=== PATIENT | female | born 1995 | race Caucasian/White ===

== ENCOUNTER → 2017-12-29 21:29 | Outpatient (CLI) | payer SELFPAY ==
[2017-12-29 23:15] LABS: Chlamydia Trachomatis by PCR Negative (Negative); Neisserai gonorrhoeae by PCR Negative (Negative); Probe Check PASS; Sample Adequacy Control PASS; Specimen Processing Control PASS
== END ==
PROVIDERS: Visit Provider Obstetrics & Gynecology
DX: Z12.4 Encounter for screening for malignant neoplasm of cervix (principal); Z11.3 Encounter for screening for infections with a predominantly sexual mode of transmission
CPT/HCPCS: 87491; 87591; 88175; G0145

== ENCOUNTER 2018-06-27 13:15 | Outpatient (CLI) | payer OTHER, SELFPAY ==
[2018-06-27 13:27] VITALS: BMI 29.4
--- NOTE | 2018-06-27 23:55 | OB.TRI.NOTE ---
- Problem List (1) 34 weeks gestation of Status: Acute (2) Decreased movement Status: Acute Qualifiers: Fetus number: single or unspecified fetus Trimester: third trimester Qualified Code(s): O36.8130 - Decreased movements, third trimester, not applicable or unspecified History of Present Illness Date of Service: 06/27/18 Was patient seen by the physician?: No Reason For Visit: NST Final HOLDEN: 08/07/18 Gestational age: 34 Weeks and 1 Days History of Present Illness: 22yo @ 34 1/7wga with c/o decreased movement Allergies acetaminophen [From Darvocet-N] Adverse Reaction (Verified 06/27/18 13:29) Other propoxyphene [From Darvocet-N] Adverse Reaction (Verified 06/27/18 13:29) Other felt fainting and dizzy Physical Exam Vitals: VSS NST - FHR Rate Baby A Baseline: 125 Variability:: Moderate Accelerations:: 15 x 15 Decelerations:: None NST Reactive:: Yes FHR Category:: Category I Uterine Activity:: irritability Impression/Plan 22yo @ 34 1/7wga with reactive NST, Cat I FHR -d/c home
== END 2018-06-27 14:25 | disposition home or self-care (01) ==
LOC: WPOUT 13:22 → WP 13:23
PROVIDERS: Family Provider Family Medicine; PCP Family Medicine; Referring Provider Obstetrics & Gynecology; Visit Provider Obstetrics & Gynecology
DX: O36.8130 Decreased fetal movements, third trimester, not applicable or unspecified (principal); Z3A.34 34 weeks gestation of pregnancy
CPT/HCPCS: 59025; 59050; 99218; G0378

== ENCOUNTER → 2018-07-12 11:15 | Outpatient (CLI) | payer OTHER, SELFPAY ==
[2018-06-27 13:27] VITALS: BMI 29.4
== END ==
PROVIDERS: Family Provider Family Medicine; PCP Family Medicine; Referring Provider Obstetrics & Gynecology; Visit Provider Obstetrics & Gynecology
DX: Z36.85 Encounter for antenatal screening for Streptococcus B (principal)
CPT/HCPCS: 87081

== ENCOUNTER → 2018-08-05 18:20 | Outpatient (CLI) | payer OTHER, SELFPAY ==
[2018-08-05 19:21] LABS: ROM Internal Control Test YES-OK TO RESULT pt. (Internal QC); ROM Patient Test Negative (Negative)
[2018-08-05 19:22] LABS: Record Kit Lot#, ROM+ J7836
[2018-08-05 19:54] VITALS: BMI 31.5
--- NOTE | 2018-08-08 04:15 | OB.TRI.NOTE ---
History of Present Illness Date of Service: 08/05/18 Was patient seen by the physician?: No Reason For Visit: R/O LABOR Date of Service: 08/05/18 Final HOLDEN: 08/07/18 Final HOLDEN Source: US >20 weeks Gestational age: 39 Weeks and 5 Days History of Present Illness: 39+ week intrauterine presents with some leaking starting the day before she presented. Concern that her water may be broke. Contractions mild. Allergies acetaminophen [From Darvocet-N] Adverse Reaction (Verified 08/05/18 19:56) Other propoxyphene [From Darvocet-N] Adverse Reaction (Verified 08/05/18 19:56) Other felt fainting and dizzy Laboratory Studies: Laboratory Tests 08/05/18 Range/Units 18:48 Vag Amniotic Fld Detect Negative (Negative) NST - FHR Rate Baby A NST Reactive:: Yes FHR Category:: Category I Impression/Plan 39+ week intrauterine with false labor. ROM plus test negative. Cervix unchanged after observation and mild contractions noted. Reactive nonstress test. Will release to home with instructions to return with increased contractions or rupture of membranes otherwise follow-up in office as scheduled.
== END | disposition home or self-care (01) ==
LOC: WPOUT 18:47 → WP 18:48
PROVIDERS: Family Provider Family Medicine; PCP Family Medicine; Visit Provider Obstetrics & Gynecology
DX: O47.1 False labor at or after 37 completed weeks of gestation (principal); Z3A.39 39 weeks gestation of pregnancy
CPT/HCPCS: 59025; 59050; 84112; 99218; G0378

== ENCOUNTER 2018-08-09 | Inpatient (IN) | payer SELFPAY ==
[2018-08-05 19:54] VITALS: BMI 31.5
[2018-08-09 00:18] VITALS: BMI 31.3
[2018-08-09] MEDS: Lactated Ringers 1,000 ML 50 ML IV ×2 (00:20→02:00)
[2018-08-09 00:52] LABS: Hematocrit 37.9 % (37-47); Hemoglobin 12.5 g/dl (12.0-15.0); Mean Corpuscular Hgb 28.5 pg (27.0-32.0); Mean Corpuscular Volume 86.3 fL (81-99); Mean Platelet Vol. 10.9 fl (6.2-12.0); Platelet Count 113 K/mm3 (150-450); RBC Distribution Width CV 16.9 % (11.6-14.6); RBC Distribution Width SD 53.4 fl (35.1-43.9); Red Blood Count 4.39 M/mm3 (4.2-5.4); White Blood Count 7.6 K/mm3 (4.4-11.0)
[2018-08-09 00:58] LABS: Scan Indicated on CBC? Y/N NO
[2018-08-09 01:05] LABS: Partial Thromboplast Time 27.6 Seconds (24.1-36.2)
[2018-08-09 01:06] LABS: AST(SGOT) 25 U/L (15-37); Alanine Aminotransfer ALT/SGPT 18 U/L (13-56); EST Glomerular Filtration Rate 162 mL/min (>60); Est Glom Filt Rate - Afr Amer 196 mL/min (>60); Estimated Creatinine Clearance 149.82 ml/min; Uric Acid 4.5 mg/dL (2.6-6.0)
[2018-08-09] MEDS: fentaNYL-bupivacaine (epidural) 100 ML BAG EPIDURAL (01:47)
--- NOTE | 2018-08-09 02:10 | PCM.HP.OB ---
- Problem List (1) 40 weeks gestation of Status: Acute (2) (spontaneous vaginal delivery) Status: Acute History Date of Admission: 08/09/18 Final HOLDEN: 08/07/18 Final HOLDEN Source: US <20 weeks Gestational age: 40 Weeks and 2 Days History of this : This is a 22 year-old, G [2], P [1001], at 40 weeks gestational age admitted with contractions and leaking of fluid. Medical History: Medical History (Last Updated 08/09/18 @ 03:55 by Sugey Camp MD) Anemia affecting O99.019 History of blood transfusion Z92.89 Allergies acetaminophen [From Darvocet-N] Adverse Reaction (Verified 08/09/18 00:19) Other propoxyphene [From Darvocet-N] Adverse Reaction (Verified 08/09/18 00:19) Other felt fainting and dizzy Home Medications: Home Medications Calcium Carbonate [Calcium] 600 mg PO DAILY 06/27/18 Ferrous Sulfate 325 mg PO BIDCM 06/27/18 Vits [Prenatabs FA] 1 tablet PO DAILY 06/27/18 Smoking Status: Never smoker Alcohol: None Number of Fetus(es): 1 Heart Tracin, moderate variability, + accelerations, + variable decelerations TOCO Analysis: 2-3/10 min History Past Pregnancies: Past Pregnancies May 2017 - 41 weeks - 8h labor - FEMALE - 8lb- Epidural at [facility] - hemorrhage with 2U PRBC Labs: Labs 08/09/18 08/09/18 08/09/18 00:20 00:20 00:20 WBC 7.6 RBC 4.39 Hgb 12.5 Hct 37.9 MCV 86.3 MCH 28.5 MCHC 33.0 RDW 16.9 H RDW Differential 53.4 H Plt Count 113 L MPV 10.9 PT 13.0 INR 1.0 APTT 27.6 Creatinine 0.50 L Estim Creat Clear Calc 149.82 Est GFR (MDRD) Af Amer 196 Est GFR (MDRD) Non-Af 162 Uric Acid 4.5 AST 25 ALT 18 1h GTT 121 mg/dL Rubella immune RPR nonreactive Hep C Ab negative Hep B S Ag NR A NEGATIVE HIV neg GC/CT neg Expected Delivery Method: Spontaneous Vaginal Review of Systems Gynecological: Reports: - - contraction, leaking of fluid, + movement. Denies: Vaginal bleeding Physical Exam Vitals: AVSS General: Alert, Oriented x3, Cooperative, No apparent distress HEENT: Atraumatic, Normocephalic Cardiovascular: Regular rate, Regular Rhythm Lungs: Normal air movement Abdomen: Soft, Non Tender, Gravid Extremities:: No edema Neurological: Neuro grossly intact CARDIOPULMONARY TECHNOLOGIST CHIEF: Normal external genitalia Estimated gestational size: Appropriate for gestational size Presentation: Cephalic Cervix Dilation (cm): 10 Station: -3 Effacement (%): 100 Assessment/Plan All Active Problems 34 weeks gestation of (Acute) Decreased movement (Acute) 40 weeks gestation of (Acute) (spontaneous vaginal delivery) (Acute) This is a 22 year-old, G [2], P [1001], at 40 weeks gestational age in labor with SROM, Cat I-II FHR Anticipate
--- NOTE | 2018-08-09 02:48 | PLAC_PTH ---
PATIENT: GLORIA MORALES LOC: [facility] U#:[id number] AGE/SX: 22/F ROOM: WP014 RE08/09/[address]: Dr. Sugey Ruano MD : 1995 BED: 1 DIS: 08/10/2018 SPEC #: [id number] RECD: 08/09/18 15:29 STATUS: ALYSHA REQ #: [id number] BEN: 08/09/18 02:[address]: Sugey Umana DEPT: SURGICAL PATHOLOGY RECD BY: Erasmo Markham ENTERED: 08/10/18 07:20 SP TYPE: PLACENTA OTHR DR: MD Dr. Chandra Schaefer DO Tissues: Placenta, NOS Procedures: Surgery Specimen Level V HEADER OPERATION: Vaginal delivery PRE-OP DIAGNOSIS: Rupture of membranes TISSUE SUBMITTED: Placenta MICROSCOPIC DIAGNOSIS Placenta: Placental disc - third trimester placenta (507 gm). Membranes - pigment laden macrophages consistent with meconium staining. Umbilical cord - three blood vessels and no pathologic diagnosis. SJ:day 08/12/18 MICROSCOPIC DESCRIPTION Slides are reviewed. GROSS DESCRIPTION SPECIMEN: PLACENTA / CLINICAL INFORMATION: A. Weight: 3.58 kg B. Gestational Age: 40 weeks C. Sex: Male PLACENTAL WEIGHT (POST FIXATION): 507 gm PLACENTAL DIMENSIONS: 17 x 16 x 3 cm PLACENTAL SHAPE: Usual ovoid PLACENTAL WEIGHT FOR GESTATIONAL AGE: Within 10-99th percentile MEMBRANES - Present A. Insertion: Marginal B. Site of rupture from edge: 2 cm from edge of placental disc C. Color of membrane: Cotton-rosa D. Abnormalities: None UMBILICAL CORD - Present A. Color: Cotton-rosa B. Insertion: Eccentric C. Length: 23 cm D. Diameter: 1.5 cm E. Number of vessels: Three F. Abnormalities: None PLACENTAL DISC - Present A. Color of surface: Cotton-rosa B. surface abnormalities: None C. Maternal cotyledons: Intact with minimal tears D. Attached retro placental clot: No clot E. Cut surface: Dark red and spongy F. Lesions: None G. Separate clot: Absent SECTIONS SUBMITTED: 1. Membrane roll and umbilical cord ( end inked in black ink) 2. Placental disc, and maternal surfaces 3. Placental disc, and maternal surfaces 4. Placental disc, and maternal surfaces AM:day 08/11/18 TC:5 CPT: 47731
[2018-08-09] MEDS: Oxytocin 30 units/NS 500 ml 30 UNITS/500 ML IV.SOLN 334 UNITS IV (02:49)
[2018-08-09] MEDS: Methylergonovine 0.2 MG/ML Ampul IM (03:10)
[2018-08-09] MEDS: Oxytocin 30 units/NS 500 ml 30 UNITS/500 ML IV.SOLN 167 UNITS IV (03:21)
--- NOTE | 2018-08-09 03:44 | PCM.OB.VAG ---
- Problem List (1) 40 weeks gestation of Status: Acute (2) (spontaneous vaginal delivery) Status: Acute Vaginal Delivery Maternal Presentation: Active Labor Amniotic Membrane Rupture Type: Spontaneous at home Rupture of Membrane time: 08/08/18 2320 h Amniotic Fluid Description: Moderate meconium Final HOLDEN: 08/07/18 Final HOLDEN Source: US <20 weeks Gestational age: 40 Weeks and 2 Days doctor who attended delivery (if requested by OB): Fernando [place] Date of Procedure: 08/09/18 Pre-Operative Diagnosis: 40 2/7WGA, LABOR Post-Operative Diagnosis: 40 2/7wga, labor Surgery/ Procedure Performed: Spontaneous Vaginal Delivery Anesthesiologist: Davey Arshad Type of Anesthesia: Epidural Description of Procedure: Patient was FD/+2 station on my arrival. She pushed over approximately 35 minutes to deliver a vigorous male infant through a nuchal cord. The infant was placed on the maternal abdomen and further attended by nursery personnel. The placenta delivered spontaneously and appeared intact on inspection. The fundus was firm. A second degree perineal laceration with vaginal extension was repaired with 3-0 Vicryl Rapide. There was subsequently increasing bleeding without hemorrhage appearing to come from the uterus. Intrauterine exam was performed with clots retrieved and fundal massage was performed. The uterus remained firm. Additional pitocin, IM Methergine and ME cytotec were administered with increased tone in the lower uterine segment and improvement of bleeding. The laceration repair however was disrupted and the perineal laceration again reapproximated. Good hemostasis was attained. Sponge and needle counts were correct x 2. Presentation: Vertex Placental Delivery Description: Spontaneous Placenta Disposition: [facility] Cord Vessel Description: 3 Vessels Nuchal Cord Compression: Without compression Cord Entanglement: Around neck x 1, loose Drain: Hudson to straight drain Estimated Blood Loss: 500 ml Infant A gender: Male (1 minute): 8 (5 minute): 9 Laceration: Midline, Perineal Extension/lac, 2nd degree Medications given after delivery: IV Pitocin Complications: None
--- NOTE | 2018-08-09 03:53 | DCINST_ITS ---
Discharge Diet: No Restrictions Discharge Activity: Return to Normal Activity, May Shower, May Take a Tub Bath May resume sexual activity in: 6 weeks Lifting Restrictions: 10-20 lb Call your doctor if you observe: Fever of 101 or Higher, Inability to urinate, Inability to have a bowel movement, Using more than one pad per hour, Shortness of breath, Swelling in the ankles, Calf discomfort, Uncontrolled pain Suture Line Care: Avoid Pulling/Pushing Cleanse incision/area with: Soap & Water Additional Instructions: If you experience any of the following, contact your healthcare provider. * Bleeding that soaks a pad every hour for 2 hours * Fever 100.4 or higher * Unrelieved incision or abdominal pain * Swelling, redness, discharge or bleeding from your incision or episiotomy site * Your incision begins to separate * Problems urinating (including inability to urinate or burning while urinating). * Visual changes * Severe headache * Flu-like symptoms * Pain or redness in one of both of your breasts * Pain, warmth, tenderness or swelling in your legs, especially the calf area * Frequent nausea and vomiting * Symptoms of depression or anxiety If you experience any of the following, call 911 or go to the nearest Emergency Room. * Chest pain * Problems breathing * Seizure activity * Partial or complete paralysis of a body part, slurred speech, weakness or drooping of the face, or a sudden inability to walk or hold your balance Allergies/Adverse Reactions: Allergies acetaminophen [From Darvocet-N] Adverse Reaction (Verified 08/09/18 00:19) Other propoxyphene [From Darvocet-N] Adverse Reaction (Verified 08/09/18 00:19) Other felt fainting and dizzy Medications to take at Discharge Calcium Carbonate [Calcium] 600 mg PO DAILY 06/27/18 Ferrous Sulfate 325 mg PO BIDCM 06/27/18 Vits [Prenatabs FA] 1 tablet PO DAILY 06/27/18 Ibuprofen 600 mg PO TID PRN #30 tablet 08/09/18 The following prescriptions were given: Ibuprofen 600 mg PO TID PRN #30 tablet PRN Reason: Pain Please Follow Up With: Santo Saini MD When: 6 weeks Primary Care Physician: Chandra Harris DO [Primary Care Provider] - Test Results: Test results from this visit will be discussed in further detail at your follow- up appointment, if applicable.
--- NOTE | 2018-08-09 03:58 | HP.PCM_ITS ---
- Problem List (1) 40 weeks gestation of Status: Acute (2) (spontaneous vaginal delivery) Status: Acute History Date of Admission: 08/09/18 Final HOLDEN: 08/07/18 Final HOLDEN Source: US <20 weeks Gestational age: 40 Weeks and 2 Days History of this : This is a 22 year-old, G [2], P [1001], at 40 weeks gestational age admitted wit h contractions and leaking of fluid. Medical History: Medical History (Last Updated 08/09/18 @ 03:55 by Sugey Camp MD) Anemia affecting O99.019 History of blood transfusion Z92.89 Allergies acetaminophen [From Darvocet-N] Adverse Reaction (Verified 08/09/18 00:19) Other propoxyphene [From Darvocet-N] Adverse Reaction (Verified 08/09/18 00:19) Other felt fainting and dizzy Home Medications: Home Medications Calcium Carbonate [Calcium] 600 mg PO DAILY 06/27/18 Ferrous Sulfate 325 mg PO BIDCM 06/27/18 Vits [Prenatabs FA] 1 tablet PO DAILY 06/27/18 Smoking Status: Never smoker Alcohol: None Number of Fetus(es): 1 Heart Tracin, moderate variability, + accelerations, + variable decelerations TOCO Analysis: 2-3/10 min History Past Pregnancies: Past Pregnancies May 2017 - 41 weeks - 8h labor - FEMALE - 8lb- Epidural at [facility] - hemorrhage with 2U PRBC Labs: Labs 08/09/18 08/09/18 08/09/18 00:20 00:20 00:20 WBC 7.6 RBC 4.39 Hgb 12.5 Hct 37.9 MCV 86.3 MCH 28.5 MCHC 33.0 RDW 16.9 H RDW Differential 53.4 H Plt Count 113 L MPV 10.9 PT 13.0 INR 1.0 APTT 27.6 Creatinine 0.50 L Estim Creat Clear Calc 149.82 Est GFR (MDRD) Af Amer 196 Est GFR (MDRD) Non-Af 162 Uric Acid 4.5 AST 25 ALT 18 1h GTT 121 mg/dL Rubella immune RPR nonreactive Hep C Ab negative Hep B S Ag NR A NEGATIVE HIV neg GC/CT neg Expected Infant Delivery Method: Spontaneous Vaginal Review of Systems Gynecological: Reports: - - contraction, leaking of fluid, + movement. Denies: Vaginal bleeding Physical Exam Vitals: AVSS General: Alert, Oriented x3, Cooperative, No apparent distress HEENT: Atraumatic, Normocephalic Cardiovascular: Regular rate, Regular Rhythm Lungs: Normal air movement Abdomen: Soft, Non Tender, Gravid Extremities:: No edema Neurological: Neuro grossly intact DEBLOCKER: Normal external genitalia Estimated gestational size: Appropriate for gestational size Presentation: Cephalic Cervix Dilation (cm): 10 Station: -3 Effacement (%): 100 Assessment/Plan All Active Problems 34 weeks gestation of (Acute) Decreased movement (Acute) 40 weeks gestation of (Acute) (spontaneous vaginal delivery) (Acute) This is a 22 year-old, G [2], P [1001], at 40 weeks gestational age in labor with SROM, Cat I-II FHR Anticipate
[2018-08-09 07:45] VITALS: BP 110/67; PULSE 95; RESP 18; TEMP 37.9; O2SAT 97
[2018-08-09] MEDS: miSOPROStol 200 MCG Tablet 1000 MCG RECTAL (07:53)
[2018-08-09] MEDS: Acetaminophen 325 MG Tablet PO ×2 (09:00→15:02)
[2018-08-09] MEDS: Prenatal Vits Tablet 1 TABLET PO (11:36)
[2018-08-09] MEDS: 0.9% Saline Lock 10 ML Syringe IV ×2 (11:37→17:16)
[2018-08-09 12:00] VITALS: BP 121/61; PULSE 90; RESP 18; TEMP 36.8
[2018-08-09] MEDS: Ibuprofen 600 MG Tablet PO (14:09)
[2018-08-09 16:00] VITALS: BP 119/83; PULSE 78; RESP 16; TEMP 36.9
[2018-08-09 20:25] VITALS: BP 121/83; PULSE 84; RESP 18; TEMP 36.7; O2SAT 97
[2018-08-09 23:19] VITALS: BP 119/71; PULSE 79; RESP 16; TEMP 36.7; O2SAT 96
[2018-08-10] MEDS: Ibuprofen 600 MG Tablet PO (01:45)
[2018-08-10 05:06] VITALS: BP 99/67; PULSE 77; RESP 18; TEMP 36.9; O2SAT 98
[2018-08-10 05:41] LABS: Hemoglobin 10.8 g/dl (12.0-15.0); Mean Corp Hgb Conc 32.7 g/gl (32-36); Mean Corpuscular Hgb 28.5 pg (27.0-32.0); Mean Corpuscular Volume 87.1 fL (81-99); Mean Platelet Vol. 10.5 fl (6.2-12.0); Platelet Count 110 K/mm3 (150-450); RBC Distribution Width CV 16.9 % (11.6-14.6); RBC Distribution Width SD 53.9 fl (35.1-43.9); Red Blood Count 3.79 M/mm3 (4.2-5.4); White Blood Count 7.9 K/mm3 (4.4-11.0)
[2018-08-10 05:43] LABS: Scan Indicated on CBC? Y/N NO
[2018-08-10] MEDS: 0.9% Saline Lock 10 ML Syringe IV (07:54)
[2018-08-10 08:15] VITALS: BP 97/59; PULSE 75; RESP 20; TEMP 36.6; O2SAT 98
[2018-08-10] MEDS: Prenatal Vits Tablet 1 TABLET PO (09:44)
--- NOTE | 2018-08-10 09:52 | PN.OBGYN_ITS ---
Patient Problems: Active and Suspected Problems (Last Updated 08/09/18 @ 03:55 by Sugey Ruano MD) 40 weeks gestation of (Acute) (spontaneous vaginal delivery) (Acute) Subjective: Patient without complaints. Breast-feeding going well. Denies fever or pain. - Physical Exam Vital Signs AF, VSS Temp Pulse Resp BP Pulse Ox 97.9 F 75 20 H 97/59 L 98 08/10/18 08:15 08/10/18 08:15 08/10/18 08:15 08/10/18 08:15 08/10/18 08:15 Oxygen Delivery Method Room Air Weight: 182 lb 8 oz Body Mass Index (BMI) 31.3 Intake and Output for Last 24 Hours 08/08/18 08/09/18 08/10/18 23:59 23:59 23:59 Intake Total 2385 / 2385 Output Total 2500 / 2500 Balance -115 / -115 Laboratory Tests Past 24 Hrs 08/10/18 05:23 WBC 7.9 RBC 3.79 L Hgb 10.8 L Hct 33.0 L MCV 87.1 MCH 28.5 MCHC 32.7 RDW 16.9 H RDW Differential 53.9 H Plt Count 110 L MPV 10.5 Fundus firm and nontender. Minimal lochia. Hemoglobin and WBC okay. Medical Necessity - Tobacco Use Smoking Status: Never smoker Assessment/Plan All Active Problems (Last Updated 08/09/18 @ 03:55 by Sugey Camp MD) 34 weeks gestation of (Acute) Decreased movement (Acute) 40 weeks gestation of (Acute) (spontaneous vaginal delivery) (Acute) Doing well day #1 status post routine spontaneous vaginal delivery. Will release to home later today if baby is able to go. IV antibiotics and Methergine discontinued.
[2018-08-10 14:40] VITALS: BP 106/63; PULSE 103; TEMP 37.4; O2SAT 95
[2018-08-12 14:17] LABS: Pathology Specimen OB SEE PATHOLOGY REPORT
--- NOTE | 2018-08-18 13:38 | NURSING ---
Had consultation. Mother doing well and still nursing infant.
== END 2018-08-10 17:15 | disposition home or self-care (01) | DRG 807 ==
PROVIDERS: Admitting Provider Obstetrics & Gynecology; Family Provider Family Medicine; PCP Family Medicine; Referring Provider Obstetrics & Gynecology; Visit Provider Obstetrics & Gynecology
DX: O42.02 Full-term premature rupture of membranes, onset of labor within 24 hours of rupture (principal); Z37.0 Single live birth; O77.0 Labor and delivery complicated by meconium in amniotic fluid; O70.1 Second degree perineal laceration during delivery; O69.81X0 Labor and delivery complicated by cord around neck, without compression, not applicable or unspecified; Z3A.40 40 weeks gestation of pregnancy
CPT/HCPCS: 59025; 59050; 82565; 84450; 84460; 84550; 85027; 85610; 85730; 86850; 86900; 88307; 99218; J7120; A4216; G0378

== ENCOUNTER → 2020-08-05 10:27 | Outpatient (CLI) | payer OTHER, SELFPAY ==
[2020-08-05 11:52] LABS: Hematocrit 38.7 % (37-47); Hemoglobin 13.1 g/dL (12.0-15.0); Mean Corp Hgb Conc 33.9 g/dL (32-36); Mean Corpuscular Hgb 30.6 pg (27.0-32.0); Mean Corpuscular Volume 90.4 fL (81-99); Mean Platelet Vol. 11.5 fl (6.2-12.0); Platelet Count 132 K/mm3 (150-450); RBC Distribution Width CV 13.8 % (11.6-14.6); RBC Distribution Width SD 44.7 fl (35.1-43.9); Red Blood Count 4.28 M/mm3 (4.2-5.4); White Blood Count 6.2 K/mm3 (4.4-11.0)
[2020-08-05 12:05] LABS: Protein, Urine (Random) 10.2 mg/dL (<11.9); Protein:Creat Ratio 195 mg/g CRE (0-200)
[2020-08-05 12:12] LABS: ALB/GLOB Ratio 0.7 RATIO (0.9-2.4); AST(SGOT) 15 U/L (15-37); Alanine Aminotransfer ALT/SGPT 21 U/L (13-56); Albumin, Serum 2.9 g/dL (3.2-5.0); Alkaline Phosphatase 117 U/L (45-117); Anion Gap 8 (5-15); BUN 8 mg/dL (7-18); BUN/Creat Ratio 14.3 RATIO (10-20); Calcium,Total 9.3 mg/dL (8.5-10.1); Chloride 105 mmol/L (98-107); Creatinine, Serum 0.56 mg/dL (0.55-1.02); EST Glomerular Filtration Rate 139 mL/min (>60); Est Glom Filt Rate - Afr Amer 168 mL/min (>60); Globulin 4.2 g/dL (2.2-4.2); Glucose 80 mg/dL (74-106); LDH 157 U/L (84-246); Potassium 4.2 mmol/L (3.5-5.1); Protein, Total 7.1 g/dL (6.4-8.2); Sodium Level 138 mmol/L (136-145)
== END ==
PROVIDERS: PCP Family Medicine; Visit Provider Obstetrics & Gynecology
DX: Z34.83 Encounter for supervision of other normal pregnancy, third trimester (principal)
CPT/HCPCS: 80053; 82570; 83615; 84156; 85027

== ENCOUNTER 2020-08-16 07:20 | Inpatient (IN) | payer SELFPAY, OTHER ==
[2020-08-16] VITALS (29 sets, daily range): BP systolic 116–140; BP diastolic 73–97; PULSE 64–247; RESP 16; TEMP 36.4–37.5; O2SAT 85–100; BMI 31.4
[2020-08-16] MEDS: Lactated Ringers 1,000 ML 50 ML IV (07:48)
[2020-08-16 08:12] LABS: Absolute Lymphocyte Count 1.16 X10^3/uL (0.83-4.51); Absolute Neutrophil Count 4.6 X10^3/uL (2.0-7.7); Basophil# 0.02 X10^3/uL; Basophil% 0.3 % (0-1); Eosinophil# 0.03 X10^3/uL; Eosinophils% 0.5 % (0-5); Hematocrit 38.3 % (37-47); Hemoglobin 12.7 g/dL (12.0-15.0); Lymphocyte # 1.16 X10^3/ul (4.0); Lymphocyte % 18.7 % (19-41); Mean Corp Hgb Conc 33.2 g/dL (32-36); Mean Corpuscular Hgb 29.2 pg (27.0-32.0); Mean Platelet Vol. 11.5 fl (6.2-12.0); Monocyte# 0.41 X10^3/uL; Monocyte% 6.6 % (0-10); NRBC Flagged by Analyzer 0 % (0-5); Neutrophil # 4.56 X10^3/uL (2.7-7.7); Neutrophil % 73.7 % (47-70); Platelet Count 143 K/mm3 (150-450); RBC Distribution Width CV 13.2 % (11.6-14.6); RBC Distribution Width SD 43.4 fl (35.1-43.9); Red Blood Count 4.35 M/mm3 (4.2-5.4); White Blood Count 6.2 K/mm3 (4.4-11.0)
[2020-08-16] MEDS: Oxytocin 30 units/NS 500 ml 30 UNITS/500 ML IV.SOLN IV (08:22)
--- NOTE | 2020-08-16 09:00 | HP.PCM_ITS ---
- Problem List (1) Gestational hypertension Status: Acute Qualifiers: Trimester: third trimester Qualified Code(s): O13.3 - Gestational [-induced] hypertension without significant proteinuria, third trimester (2) 40 weeks gestation of Status: Acute History Date of Admission: 08/16/20 Final HOLDEN: 08/13/20 Final HOLDEN Source: LMP Gestational age: 40 Weeks and 3 Days History of this : This is a 24 year-old, G [3], P [2], at 40 3/7 weeks gestational age by LMP c/w 24w US presents for IOL for gHTN. issues: -Family hx Factor V leitein -gestational HTN -gestational thrombocytopenia -Hx hemorrhage x 2 -Rh neg (FOB Tyler is also A neg) -Rubella equivocal -Late transfer of care at 38w from [facility] Medical History: Medical History (Last Updated 08/16/20 @ 23:[address] Sugey Ruano MD) Anemia affecting O99.019 Anxiety F41.9 previously on Paxil History of blood transfusion Z92.89 Surgical History: Surgical History (Last Updated 08/16/20 @ 23:[address] Sugey Ruano MD) Hx of appendectomy Z90.49 2010 Allergies acetaminophen [From Darvocet-N] Adverse Reaction (Verified 08/16/20 07:43) Other propoxyphene [From Darvocet-N] Adverse Reaction (Verified 08/16/20 07:43) Other felt fainting and dizzy Home Medications: Home Medications Ferrous Sulfate 325 mg PO DAILY 06/27/18 Vits [Prenatabs FA] 1 tablet PO DAILY 06/27/18 Smoking Status: Never smoker Alcohol: None Number of Fetus(es): 1 NST - FHR Rate Baby A Baseline: 130 Variability:: Moderate Accelerations:: 15 x 15 Decelerations:: None NST Reactive:: Yes FHR Category:: Category I Uterine Activity:: 0-1/10 History Past Pregnancies: Past Pregnancies Delivery Date Name GA/ Weeks Outcome Route Wt Sex Labor Length Anesthesia Delivery Location Provider FO 05/2017 Annalisa 41 IOL, gHTN 8lb F 8 Epidural [facility] Damaso Scott 08/2018 Terry 40.2 8lb4oz M [address] [facility] Francia Scott Labs: Mom's Labs & Results 08/16/20 08/16/20 08/16/20 07:45 07:45 07:45 WBC 6.2 RBC 4.35 Hgb 12.7 Hct 38.3 MCV 88.0 MCH 29.2 MCHC 33.2 RDW Std Deviation 43.4 RDW Coeff of Stephanie 13.2 Plt Count 143 L MPV 11.5 Immature Gran % (Auto) 0.200 Neut % (Auto) 73.7 H Lymph % (Auto) 18.7 L [place] % (Auto) 6.6 Eos % (Auto) 0.5 Baso % (Auto) 0.3 Absolute Neuts (auto) 4.6 Absolute Lymphs (auto) 1.16 Nucleated RBC % 0 RPR Hep Bs Antigen Hepatitis C Antibody HIV 1&2 Antibody Rubella IgG Antibody Reactive Blood Type A NEGATIVE Antibody Screen NEGATIVE 08/16/20 08/16/20 07:45 07:45 WBC RBC Hgb Hct MCV MCH MCHC RDW Std Deviation RDW Coeff of Stephanie Plt Count MPV Immature Gran % (Auto) Neut % (Auto) Lymph % (Auto) [place] % (Auto) Eos % (Auto) Baso % (Auto) Absolute Neuts (auto) Absolute Lymphs (auto) Nucleated RBC % RPR Pending Hep Bs Antigen Non-Reactive Hepatitis C Antibody Non-Reactive HIV 1&2 Antibody Non-Reactive Rubella IgG Antibody Blood Type Antibody Screen Course Did the patient receive Yes care? Labs Blood Type: A RH: NEGATIVE RPR/VDRL/Syphilis pending Rubella status Immune HbSAg Negative Date Done: 08/16/20 Chlamydia Negative Gonorrhea Negative HIV/AIDS Non-Reactive Group B Strep: Negative Other Lab Procedures/Results/ RPR pending Comments: Current Obstetrical History Gestational Diabetes No Incompetent Cervix No Infertility No IUGR No Macrosomia No Hypertension/Pre-eclampsia Yes Placenta Previa/Abruption No PTL/PROM No Uterine anomaly No Oligohydramnios No Polyhydramnios No Multiple gestation No Past Medical History Asthma No Diabetes No Hypertension No Heart disease No Mitral valve prolapse No Neurologic/Seizure disorder/ No Migraines Kidney disease No Liver disease No Varicosities No Clotting disorders/Hx of DVT No: factor V in family Thyroid Dysfunction No Other medical diseases No Psychiatric disorders Yes: anxiety Major trauma No Abnormal PAP smear No Sleep apnea No Mammogram in the last 2 years No Social History Marital Status: Alleged father Tyler Mustafa Smoking No Smoking Status Never smoker Expected Infant Delivery Method: Spontaneous Vaginal Number of Visits: 9 Physical Exam Vitals: Vital Signs Temp Pulse Resp BP Pulse Ox 99.5 F H 89 16 116/83 H 97 08/16/20 19:34 08/16/20 19:34 08/16/20 19:34 08/16/20 19:34 08/16/20 19:34 General: Alert, Oriented x3, Cooperative, No apparent distress HEENT: Atraumatic, Normocephalic Cardiovascular: Regular rate, Regular Rhythm, Normal S1, Normal S2 Lungs: Clear to auscultation, Normal air movement Abdomen: Soft, Non Tender, Non-Distended, Gravid Neurological: Neuro grossly intact Estimated gestational size: Appropriate for gestational size Presentation: Cephalic Cervix Dilation (cm): 2 - soft Station: -3 Effacement (%): 50 - midposition Assessment/Plan All Active Problems (Last Updated 08/16/20 @ 23:[address] Sugey Ruano MD) 40 weeks gestation of (Acute) Gestational hypertension (Acute) This is a 24 year-old, G [3], P [23], at 40.3 weeks gestational age. -Pitocin for induction -Cat I FHR -GBS neg
[2020-08-16 09:44] LABS: Rubella IgG Reactive (Nonreactive)
[2020-08-16 10:11] LABS: HIV - WCH Non-Reactive (Nonreactive); Hepatitis B Surface Antigen Non-Reactive (Nonreactive)
[2020-08-16 10:13] LABS: Hepatitis C Antibody Non-Reactive (Nonreactive)
[2020-08-16] MEDS: Oxytocin 30 units/NS 500 ml 30 UNITS/500 ML IV.SOLN 334 UNITS IV (15:46)
[2020-08-16] MEDS: miSOPROStol 200 MCG Tablet 1000 MCG RC (16:02)
--- NOTE | 2020-08-16 16:10 | PCM.OPRPT ---
Vaginal Delivery Maternal Presentation: Active Labor, Elective Induction Method of Induction: Pitocin Medical Reason for Induction: Post term Amniotic Membrane Rupture Type: Artificial Amniotic Fluid Description: Lightly stained meconium Final HOLDEN: 08/13/20 Final HOLDEN Source: LMP Gestational age: 40 Weeks and 3 Days Date of Procedure: 08/16/20 Pre-Operative Diagnosis: Term boudreaux intrauterine Post-Operative Diagnosis: Term boudreaux intrauterine Surgery/ Procedure Performed: Spontaneous Vaginal Delivery Type of Anesthesia: None Description of Procedure: Spontaneous delivery of viable male. Nuchal cord x1, loose, delivered through. Baby to mom, cord clamped and cut. Spontaneous delivery of placenta. 2nd degree perineal laceration, repaired in usual fashion. Hemostatic. EBL 600cc. [address] Estimated Blood Loss: 600cc Infant A gender: Male (1 minute): 8 (5 minute): 9
[2020-08-16] MEDS: Acetaminophen 500 MG Tablet 1000 MG PO (17:02)
[2020-08-16] MEDS: Methylergonovine 0.2 MG/ML Ampul IM (17:12)
[2020-08-16] MEDS: Ibuprofen 600 MG Tablet PO (22:19)
[2020-08-17 00:02] VITALS: BP 114/69; PULSE 89; RESP 16; TEMP 36.2
[2020-08-17] MEDS: Acetaminophen 500 MG Tablet 1000 MG PO (03:18)
[2020-08-17 03:27] VITALS: BP 112/73; PULSE 87; RESP 16; TEMP 36.2
--- NOTE | 2020-08-17 07:38 | PCM.PN.OB ---
Patient Problems: Active and Suspected Problems (Last Updated 08/16/20 @ 23:[address] Sugey Ruano MD) 40 weeks gestation of (Acute) Gestational hypertension (Acute) Subjective: No issues overnight. Denies headache, vision changes. She feels well. Has been out of bed. Denies heavy lochia. She is . Objective: avss - Physical Exam Vitals/I&O's: Vital Signs Temp Pulse Resp BP Pulse Ox 97.1 F L 87 16 112/73 97 08/17/20 03:27 08/17/20 03:27 08/17/20 03:27 08/17/20 03:27 08/16/20 19:34 Oxygen Delivery Method Room Air Weight: 82.917 kg Body Mass Index (BMI) 31.4 Intake and Output for Last 24 Hours 08/15/20 08/16/20 08/17/20 23:59 23:59 23:59 Intake Total 959.53 / 959.53 Output Total 1099 / 1099 Balance -139.47 / -139.47 General: Alert, Oriented x3, Cooperative, No apparent distress HEENT: Atraumatic, Normocephalic Lungs: Clear to auscultation, Normal air movement Cardiovascular: Regular rate, Regular Rhythm, Normal S1, Normal S2 Abdomen: Soft, Non Tender, Non-Distended Extremities: No edema, No Calf Tenderness Neurological: Neuro grossly intact Psych/Mental Status: Normal Affect, Appropriate, Alert and oriented to time, place, person, mood and affect Comment: Lochia scant Laboratory Results 08/16/20 07:45: WBC 6.2, RBC 4.35, Hgb 12.7, Hct 38.3, MCV 88.0, MCH 29.2, MCHC 33.2, RDW Std Deviation 43.4, RDW Coeff of Stephanie 13.2, Plt Count 143 L, MPV 11.5, Immature Gran % (Auto) 0.200, Neut % (Auto) 73.7 H, Lymph % (Auto) 18.7 L, [place] % (Auto) 6.6, Eos % (Auto) 0.5, Baso % (Auto) 0.3, Absolute Neuts (auto) 4.6, Absolute Lymphs (auto) 1.16, Nucleated RBC % 0 08/16/20 07:45: Blood Type A NEGATIVE, Antibody Screen NEGATIVE 08/16/20 07:45: Rubella IgG Antibody Reactive 08/16/20 07:45: RPR Pending 08/16/20 07:45: Hep Bs Antigen Non-Reactive, Hepatitis C Antibody Non-Reactive, HIV 1&2 Antibody Non-Reactive Current Medications Acetaminophen (Acetaminophen 500 Mg Tablet) 1,000 mg PO Q8H PRN PRN PRN Reason: Pain Score 1-3 Last Admin: 08/17/20 03:18 Dose: 1,000 mg Documented by: Bisacodyl (Bisacodyl 10 Mg Suppository) 10 mg RC UD PRN PRN Reason: If no BM Dibucaine (Dibucaine 30 Gm Tube) 1 applic TOPICAL TID PRN PRN; Protocol PRN Reason: Discomfort Hydrocortisone (Hydrocortisone 2.5% Crm) 1 applic TOPICAL TID PRN PRN; Protocol PRN Reason: Discomfort Ibuprofen (Ibuprofen 600 Mg Tablet) 600 mg PO Q6H PRN PRN PRN Reason: Pain Score 1-3 Last Admin: 08/16/20 22:19 Dose: 600 mg Documented by: Ondansetron HCl (Ondansetron 4 Mg/2 Ml Vial) 4 mg IV Q4H PRN PRN PRN Reason: Nausea Senna/Docusate Sodium (Senna/Docusate Sodium 1 Tablet) 1 - 2 tablet PO DAILY PRN PRN PRN Reason: Constipation Simethicone (Simethicone 80 Mg Tablet) 80 mg PO PCHS PRN PRN Reason: Indigestion/Stomach pain Sodium Chloride (0.9% Saline Lock 10 Ml Syringe) 5 - 15 ml IV UD PRN PRN Reason: SALINE FLUSH Medical Necessity - Tobacco Use Smoking Status: Never smoker Assessment/Plan All Active Problems (Last Updated 08/16/20 @ 23:[address] Sugey Ruano MD) 40 weeks gestation of (Acute) Gestational hypertension (Acute) This is a 24 year-old, G [3], P [3003], PPD#1 s/p doing well -hx gHTN - BPs normalized -Upper normal temperatures yesterday evening likely 2/2 cytotec administration, no evidence of infection - -Rh neg, also Rh neg -Will plan for d/c tomorrow
[2020-08-17 10:00] VITALS: BP 137/87; PULSE 71; RESP 16; TEMP 36.2; O2SAT 97
[2020-08-17 12:43] VITALS: BP 98/58; PULSE 70; RESP 16; TEMP 36.7; O2SAT 99
[2020-08-17 16:00] VITALS: BP 121/81; PULSE 84; RESP 16; TEMP 36.2
--- NOTE | 2020-08-17 16:58 | DCINST_ITS ---
Discharge Diet: No Restrictions Discharge Activity: Return to Normal Activity, May Shower, May Take a Tub Bath May resume sexual activity in: 4-6 weeks Call your doctor if you observe: Fever of 101 or Higher, Inability to urinate, Inability to have a bowel movement, Using more than one pad per hour, Shortness of breath, Chest pain, Calf discomfort Additional Instructions: If you experience any of the following, contact your healthcare provider. * Bleeding that soaks a pad every hour for 2 hours * Fever 100.4 or higher * Unrelieved incision or abdominal pain * Swelling, redness, discharge or bleeding from your incision or episiotomy site * Your incision begins to separate * Problems urinating (including inability to urinate or burning while urinating). * Visual changes * Severe headache * Flu-like symptoms * Pain or redness in one of both of your breasts * Pain, warmth, tenderness or swelling in your legs, especially the calf area * Frequent nausea and vomiting * Symptoms of depression or anxiety If you experience any of the following, call 911 or go to the nearest Emergency Room. * Chest pain * Problems breathing * Seizure activity * Partial or complete paralysis of a body part, slurred speech, weakness or drooping of the face, or a sudden inability to walk or hold your balance Allergies/Adverse Reactions: Allergies acetaminophen [From Darvocet-N] Adverse Reaction (Verified 08/16/20 07:43) Other propoxyphene [From Darvocet-N] Adverse Reaction (Verified 08/16/20 07:43) Other felt fainting and dizzy Medications to take at Discharge Vits [Prenatabs FA ] 1 tablet PO DAILY 06/27/18 Please Follow Up With: Chay Arroyo MD When: 1-2 weeks Primary Care Physician: Chandra Harris DO [Primary Care Provider] - Test Results: Test results from this visit will be discussed in further detail at your follow- up appointment, if applicable.
[2020-08-22 01:10] LABS: Rapid Plasmin Reagin (RPR) NONREACTIVE (NONREACTIVE)
== END 2020-08-17 18:00 | disposition home or self-care (01) | DRG 806 ==
PROVIDERS: Obstetrics & Gynecology; Admitting Provider Student in an Organized Health Care Education/Training Program; PCP Family Medicine; Referring Provider Student in an Organized Health Care Education/Training Program; Visit Provider Student in an Organized Health Care Education/Training Program
DX: O13.4 Gestational [pregnancy-induced] hypertension without significant proteinuria, complicating childbirth (principal); O99.12 Other diseases of the blood and blood-forming organs and certain disorders involving the immune mechanism complicating childbirth; Z37.0 Single live birth; D69.59 Other secondary thrombocytopenia; O69.81X0 Labor and delivery complicated by cord around neck, without compression, not applicable or unspecified; O70.1 Second degree perineal laceration during delivery; O77.0 Labor and delivery complicated by meconium in amniotic fluid; Z3A.40 40 weeks gestation of pregnancy; Z87.59 Personal history of other complications of pregnancy, childbirth and the puerperium
CPT/HCPCS: 59025; 59050; 85025; 86592; 86703; 86762; 86803; 86850; 86900; 86901; 87340; 99218; J7120; G0378